=== PATIENT | female | born 1990 | race Two or more races ===

== ENCOUNTER 2024-04-22 18:22 | Emergency (ER) | payer OTHER, SELFPAY ==
--- NOTE | ~2024-04-22 | US_ITS ---
EXAMINATION: ULTRASOUND PELVIC, COMPLETE CLINICAL INFORMATION: Pelvic pain. Vaginal spotting. COMPARISON: None. TECHNIQUE: Transabdominal imaging. Spectral Doppler and color Doppler exam was utilized. LMP: 02/20/2024. Gestational age by LMP 8 weeks 6 days. JULIO November 26, 2024. FINDINGS: UTERUS: Single intrauterine gestation. There is a pole and a yolk sac. heart rate 172 bpm. [place]-rump length 1.9 cm. This correlates to dating by this ultrasound exam of 8 weeks 4 days. JULIO by ultrasound November 28, 2024 ADNEXA: Ovarian vascularity:Doppler demonstrates both arterial and venous vascular flow in the right and left ovary. No evidence of ovarian torsion. Right Ovary: 1.8 x 2.4 x 1.7 cm Left Ovary: There is a mildly cyst measuring 2 cm. Left ovary measures 2.9 x 2.6 x 3.2 cm. Cul-de-sac: No Fluid US/US OB pelvic and transvaginal IMPRESSION: Single intrauterine gestation with estimated gestational age of 8 weeks 4 days. JULIO November 28, 2024. Electronically signed by: Khang Hoover MD 04/22/2024 09:46 PM EST
--- NOTE | 2024-04-22 18:35 | ECG_ITS ---
Test Reason : sob Blood Pressure : / mmHG Vent. Rate : 082 BPM Atrial Rate : 082 BPM P-R Int : 156 ms QRS Dur : 078 ms QT Int : 372 ms P-R-T Axes : 010 043 007 degrees QTc Int : 434 ms Normal sinus rhythm Cannot rule out Anterior infarct , age undetermined Abnormal ECG No previous ECGs available Referred By: Tran Dela Cruz Electronically Signed By:AUBREE COPPOLA MD
--- NOTE | 2024-04-22 18:47 | ED.SOB ---
HPI - SOB/Dyspnea General Chief Complaint: General Medical Stated Complaint: SOB Time Seen by Provider: 04/22/24 18:31 Source: patient, EMS and old records reviewed Mode of arrival: EMS Limitations: no limitations History of Present Illness ED Provider: ALEX RICKS Narrative: 34 yo female with PMH of anxiety/depression with last LMP 02/19 and positive preg test this past week at home. She notes she was just here all day with kids and they both have URI she has felt fine. She then walked about 20 min to [facility] and started to feel chest tightness across the chest, sweaty, nauseated and did not feel well. She vomited. No syncope occurred. EMS notes they found her 95% on RA with wheezes on R lung she was given a duoneb and it helped. She denies having URI, she was a former smoker, she has never used an inhaler before. She did eat today at 2 to 3pm. She feels back to normal after duoneb. She denies vag bleeding but states she has had lower abdominal pain all day which has increased. 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: occurred during exertion Timing: now resolved Severity: moderate Exacerbating factors: exertion and coughing Relieving factors: bronchodilators Related Data Previous Rx's ?Medication ?Instructions ?Recorded escitalopram oxalate 5 mg tablet 5 mg PO DAILY 30 days #30 tabs 02/17/21 fluconazole 150 mg tablet 150 mg PO Q3D 2 doses #2 tabs 09/30/21 (Diflucan) Allergies Allergy/AdvReac Type Severity Reaction Status Date / Time No Known Allergies Allergy Verified 04/22/24 19:01 Review of Systems Review of Systems: Constitutional : No Fever, No Chills ENT/Mouth : No Hoarseness, No sore throat, No Rhinorrhea Eyes: No Redness, No Discharge, No Vision Changes Cardiovascular : pos Chest Pain, positive SOB, positive Dyspnea on Exertion, No Edema Respiratory : no Cough, No Sputum, positive Wheezing, Gastrointestinal : pos Nausea, pos Vomiting, No Diarrhea, pos abdominal Pain Genitourinary : No Dysuria, No Hematuria Musculoskeletal : No joint pain, No Myalgias Skin : No rash Neuro : No Weakness, No Numbness, No Headache Psych : No anxiety, depression All other systems reviewed and are negative [facility] Past Medical History Attestation statement: The following information was validated with the patient. Source: old records reviewed Medical History Primary insomnia URSZULA (generalized anxiety disorder) Mild recurrent major depression Medical cannabis use Class 2 obesity without serious comorbidity with body mass index (BMI) of 37.0 to 37.9 in adult Surgical History H/O wisdom tooth extraction History of section Family History Family History Mother Mental health disorder Father No problems noted. Social History Social History Housing: Apartment Alcohol intake: never Patient Tobacco Use Status: Never used Tobacco e-Cigarette/Vaping Use: Never Used Second Hand Smoke Exposure: No Substance Use Type: Marijuana Advance Directives: No Advance Directives Information Provided: No service: No Current occupational status: unemployed Physical Exam Vital Signs: Vital Signs: Last Vital Signs Temp 98.2 F 04/22/24 18:50 Pulse 86 04/22/24 18:50 Resp 20 04/22/24 18:50 BP 122/73 04/22/24 18:50 Pulse Ox 99 04/22/24 18:50 O2 Del Method Room Air 04/22/24 18:50 BMI result Body Mass Index 40.2 Appearance: Alert. Oriented X3. No acute distress. Eyes: Pupils equal, round and reactive to light. ENT: Pharynx normal. Neck: Normal inspection. Neck supple. CVS: Normal heart rate and rhythm. Pulses normal. Respiratory: No respiratory distress. Breath sounds normal. Abdomen: Soft and non-tender. Skin: Skin warm and dry. Normal skin color. Normal skin turgor. Extremities: No lower extremity edema. No calf ttp Neuro: Oriented X 3. No motor deficit. No sensory deficit. Course Course Course Narrative: discussed ddimer with patient and benefits and risks of CT scan she is currently still thinking about CTA Medical Decision Making Medical Decision Making MDM Narrative: 34 yo female with PMH of anxiety/depression with last LMP 02/19 and positive preg test this past week who was walking and suffered an episode of abdominal pain n/v - labs, Rh type and US for ectopic ordered, she also notes CP and dyspnea has no risk factors for ACS - given will order EKG, troponin, ddimer and reassess. She responded well to duoneb. Possible viral syndrome with reactive airway disease, VTE, ectopic, anxiety Differential Diagnosis Differential Diagnoses: The differential diagnosis associated with the presentation includes reactive airway disease, VTE, ectopic, anxiety Admission/Observation Consideration of admission/observation: Escalation of care including admission/observation considered refuses CT scan she is aware we were looking for VTE she wants to go home at this time feels much better stable for DC Lab Data MDM Lab Attestation statement: I reviewed the patient's lab results. 04/22/24 19:24 04/22/24 19:24 Labs: Lab Results 04/22/24 04/22/24 Range/Units 19:24 20:04 WBC 10.1 (4.8-10.8) X10*3/uL RBC 4.99 (4.20-5.50) X10*6/uL Hgb 13.9 (12.0-16.0) g/dl Hct 41.9 (37.0-47.0) % MCV 84.0 (80.0-98.0) fL MCH 27.9 (27.0-33.0) pg MCHC 33.2 (31.0-35.0) g/dl RDW 15.1 (11.0-16.0) % Plt Count 272 (160-400) X10*3/uL MPV 10.7 (9.4-12.3) fL Immature Gran % (Auto) 0.3 (0.0-0.4) % Neut % (Auto) 79.7 H (45-73) % Lymph % (Auto) 15.6 L (20-40) % Drew % (Auto) 3.9 (2-11) % Eos % (Auto) 0.2 (0-4) % Baso % (Auto) 0.3 (0-2) % Lymph # (Auto) 1.6 (1.2-4.9) X10*3/uL Drew # (Auto) 0.4 (0.1-1.2) X10*3/uL Eos # (Auto) 0.0 (0.0-0.4) X10*3/uL Baso # (Auto) 0.0 (0.0-0.2) X10*3/uL Abs Immat Gran (auto) 0.03 (0.00-0.03) X10*3/uL Absolute Neuts (auto) 8.1 (2.0-8.3) x10*3/uL Absolute Nucleated RBC 0.000 (0.0-0.012) X10*3/uL Nucleated RBC % (auto) 0.0 (0.0-0.2) /100WBC D-Dimer High Sensitivty 351 NG/ML Sodium 134 L (135-145) mmol/L Potassium 3.4 (3.3-5.1) mmol/L Chloride 104 (96-108) mmol/L Carbon Dioxide 22 (22-29) mmol/L Anion Gap 11 L (12-20) BUN 7 L (9-16) mg/dL Creatinine 0.76 (0.5-1.4) mg/dL Estim Creat Clear Calc 104.1 Estimated GFR > 60 Random Glucose 131 H (60-115) mg/dL Calcium 9.3 (8.4-10.2) mg/dL Magnesium 2.0 (1.6-2.6) mg/dL Total Bilirubin 0.2 (0.0-1.0) mg/dL Direct Bilirubin < 0.2 (0.0-0.5) mg/dL AST 18 (5-31) U/L ALT 17 (0-31) U/L Alkaline Phosphatase 62 (39-117) U/L Troponin I High Sens < 2.7 (<3.5-17.0) ng/L B-Natriuretic Peptide < 10 (<100) pg/mL Total Protein 7.6 (6.5-8.0) g/dL Albumin 4.1 (3.5-5.0) g/dL Beta HCG, Quant 59326 mIU/mL Urine Color Yellow Urine Appearance Cloudy Urine pH 6.0 (5.0-9.0) Ur Specific [place] 1.025 (1.005-1.025) Urine Protein 30 (1+) H (Neg-Trace) mg/dL Urine Glucose (UA) Negative (Negative) mg/dL Urine Ketones Negative (Negative) mg/dL Urine Blood Large (3+) H (Negative) Urine Nitrite Negative (Negative) Ur Leukocyte Esterase Negative (Negative) Urine RBC >20 H (0-2) /HPF Urine WBC 0-5 (0-5) /HPF Ur Squamous Epith Cells 6-10 (0-2) /HPF Urine Bacteria 3+ (None Seen) Hyaline Casts 3-5 (0-2) /LPF Influenza Type A (PCR) NEGATIVE (Negative) Influenza Type B (PCR) NEGATIVE (Negative) RSV RNA Qual (PCR) NEGATIVE (Negative) SARS-CoV-2 RNA (RT-PCR) NEGATIVE (Negative) Blood Type A Positive Independent Interpretation I performed an independent interpretation of an: EKG and Ultrasound (IUP) Interpretation: Rate: 82 Rhythm: NSR [place]: normal Normal P waves. Normal BOGDAN. Normal QRS complex. ST T wave : no JAMES, inverted t waves III and V1 qTC: 434 prior studies: no acute ischemia The study has been interpreted contemporaneously by me. . Radiology Impression Discussion of test interpretation with radiology: I have reviewed the radiologist's reading. Independent Historian Clinical information obtained from an independent historian. History obtained from or confirmed by: EMS External Record Review External record reviewed: Outpatient record Prescription Management I considered prescription management with: Other Discharge Plan Discharge Clinical Impression: Near syncope Patient Disposition: Home, Self-Care Instructions: Near Syncope (ED) Additional Instructions: return for any worsening symptoms or concerns you declined a CT scan which we were doing to rule out any blood clot in the lungs please return for any worsening symptoms or concerns blood type is A Positive call and follow up with your OBGYN as soon as possible FINDINGS: UTERUS: Single intrauterine gestation. There is a pole and a yolk sac. heart rate 172 bpm. [place]-rump length 1.9 cm. This correlates to dating by this ultrasound exam of 8 weeks 4 days. JULIO by ultrasound November 28, 2024 ADNEXA: Ovarian vascularity:Doppler demonstrates both arterial and venous vascular flow in the right and left ovary. No evidence of ovarian torsion. Right Ovary: 1.8 x 2.4 x 1.7 cm Left Ovary: There is a mildly cyst measuring 2 cm. Left ovary measures 2.9 x 2.6 x 3.2 cm. Cul-de-sac: No Fluid US/US OB pelvic and transvaginal IMPRESSION: Single intrauterine gestation with estimated gestational age of 8 weeks 4 days. JULIO November 28, 2024. Prescriptions: No Action fluconazole [Diflucan] 150 mg tablet 150 mg PO Q3D Qty: 2 0RF escitalopram oxalate 5 mg tablet 5 mg PO DAILY 30 Days Qty: 30 1RF Print Language: Martiniquais
[2024-04-22 18:50] VITALS: BP 104/68; BP 122/73; PULSE 74; PULSE 86; RESP 20; TEMP 36.8; O2SAT 95; O2SAT 99; BMI 40.2
[2024-04-22 19:30] LABS: MANUAL DIFF FLAG NO
[2024-04-22 19:42] LABS: Basophils Percent Auto 0.3 % (0-2); D Dimer High Sensitivity 351 NG/ML; Eosinophils Percent Auto 0.2 % (0-4); Hematocrit 41.9 % (37.0-47.0); Hemoglobin 13.9 g/dl (12.0-16.0); Imm Gran Abs Auto 0.03 X10*3/uL (0.00-0.03); Imm Gran Pct Auto 0.3 % (0.0-0.4); Lymphocytes Absolute Auto 1.6 X10*3/uL (1.2-4.9); Lymphocytes Percent Auto 15.6 % (20-40); Mean Corpuscular HGB Conc 33.2 g/dl (31.0-35.0); Mean Corpuscular Hemoglobin 27.9 pg (27.0-33.0); Mean Platelet Volume 10.7 fL (9.4-12.3); Monocytes Absolute Auto 0.4 X10*3/uL (0.1-1.2); Monocytes Percent Auto 3.9 % (2-11); Neutrophils Absolute Auto 8.1 x10*3/uL (2.0-8.3); Neutrophils Percent Auto 79.7 % (45-73); Platelet Count 272 X10*3/uL (160-400); Red Blood Count 4.99 X10*6/uL (4.20-5.50); Red Cell Distribution Width 15.1 % (11.0-16.0); White Blood Count 10.1 X10*3/uL (4.8-10.8)
[2024-04-22 19:52] LABS: B Type Natriuretic Peptide < 10 pg/mL (<100)
[2024-04-22 19:55] LABS: Alanine Aminotransferase 17 U/L (0-31); Albumin Level 4.1 g/dL (3.5-5.0); Alkaline Phosphatase 62 U/L (39-117); Anion Gap 11 (12-20); Aspartate Amino Transferase 18 U/L (5-31); Bilirubin Direct < 0.2 mg/dL (0.0-0.5); Bilirubin Total 0.2 mg/dL (0.0-1.0); Blood Urea Nitrogen 7 mg/dL (9-16); Calcium 9.3 mg/dL (8.4-10.2); Carbon Dioxide 22 mmol/L (22-29); Chloride 104 mmol/L (96-108); Creatinine Clr Calc Pharmacy 104.1; Estimated Glomerular Filt Rate > 60; Glucose Random 131 mg/dL (60-115); Potassium 3.4 mmol/L (3.3-5.1); Sodium 134 mmol/L (135-145); Total Protein 7.6 g/dL (6.5-8.0)
[2024-04-22 19:56] LABS: Troponin-I High Sensitivity < 2.7 ng/L (<3.5-17.0)
[2024-04-22 20:08] LABS: Influenza A PCR NEGATIVE (Negative); Influenza B PCR NEGATIVE (Negative); Resp Syncy Virus RNA Qual PCR NEGATIVE (Negative); SARS COV2 PCR INHOUSE NEGATIVE (Negative)
[2024-04-22 20:22] LABS: HCG Quantitative 72204 mIU/mL
[2024-04-22 20:31] LABS: Appearance Urine Cloudy; Color Urine Yellow; Glucose Urine UA Negative (Negative); Leukocyte Esterase Urine Negative (Negative); Nitrite Urine Negative (Negative); Specific Gravity - Urine 1.025 (1.005-1.025); UMIC TRIGGER UACC YES; Urine Blood Large (3+) (Negative); Urine Ketones Negative (Negative); Urine Protein 30 (1+) mg/dL (Neg-Trace)
[2024-04-22 20:44] LABS: Bacteria Urine 3+ (None Seen); RBC Urine >20 /HPF (0-2); WBC Urine 0-5 /HPF (0-5)
[2024-04-22 22:39] VITALS: BP 118/72; PULSE 82; RESP 18; TEMP 36.8; O2SAT 99
[2024-04-22 22:40] VITALS: BP 118/72; PULSE 82; RESP 18; TEMP 36.8; O2SAT 99
== END 2024-04-22 22:41 | disposition home or self-care (01) ==
PROVIDERS: Emergency Provider Emergency Medicine
DX: R55 Syncope and collapse (principal); R06.02 Shortness of breath; R07.89 Other chest pain; R11.2 Nausea with vomiting, unspecified; R05.9 Cough, unspecified; Z03.818 Encounter for observation for suspected exposure to other biological agents ruled out; Z79.899 Other long term (current) drug therapy
CPT/HCPCS: 0241U; 36415; 76801; 76817; 80048; 80076; 81001; 83735; 83880; 84484; 84702; 85025; 85379; 86900; 86901; 93005; 99284

== ENCOUNTER → 2024-04-22 18:35 | Outpatient (BNV) | payer OTHER, SELFPAY | PROVIDERS: Emergency Provider Emergency Medicine; Visit Provider Internal Medicine Cardiovascular Disease | DX: R06.02 Shortness of breath (principal) | CPT/HCPCS: 93010 ==

== ENCOUNTER 2024-04-26 14:33 | Emergency (ER) | payer OTHER, SELFPAY ==
[2024-04-26 15:08] VITALS: BP 121/80; PULSE 85; RESP 19; TEMP 36.6; O2SAT 98; BMI 40.4
--- NOTE | 2024-04-26 15:11 | ED_ITS ---
HPI - General Adult General Chief complaint: Upper Respiratory Symptoms Stated complaint: sob Time Seen by Provider: 04/26/24 20:15 Source: patient Limitations: no limitations History of Present Illness ED Provider: Amy cleveland PA-C HPI narrative: 34-year-old female with a history of morbid obesity, anxiety, depression, currently 9 weeks presents with cough cold symptoms. Patient was seen in the emergency department 4 days ago, she had an elevated dimer, she opted not to have a CT angiogram of the chest. Patient's symptoms improved after an updraft. She was not sent home with a additional albuterol or a steroid. Patient's children are both sick with viral illness, confirmed by their superintendent communications. She has a child who has asthma and has been using albuterol secondary to viral syndrome. The patient's pleuritic chest discomfort resolved after albuterol. Patient denies unilateral calf pain or swelling, no hemoptysis. Related Data Previous Rx's ?Medication ?Instructions ?Recorded escitalopram oxalate 5 mg tablet 5 mg PO DAILY 30 days #30 tabs 02/17/21 fluconazole 150 mg tablet 150 mg PO Q3D 2 doses #2 tabs 09/30/21 (Diflucan) albuterol sulfate 90 mcg/actuation 2 puff inhalation Q4-6H PRN 04/26/24 aerosol inhaler shortness of breath or wheezing 7 days #6.7 grams prednisone 20 mg tablet 40 mg (2 x 20 mg) PO DAILY #10 tabs 04/26/24 Allergies Allergy/AdvReac Type Severity Reaction Status Date / Time No Known Allergies Allergy Verified 04/26/24 15:11 Review of Systems 2 Review of Systems: Yes all other systems are reviewed and are negative Constitutional: Constitutional: Denies fatigue and Denies fever(s) Cardiovascular: Cardiovascular: Denies chest pain and Denies dyspnea Respiratory: Respiratory: Reports cough, Denies dyspnea and Denies wheezing Gastrointestinal: Gastrointestinal: Denies abdominal pain, Denies diarrhea, Denies nausea and Denies vomiting Endocrine: Endocrine: Denies fatigue Allergic/Immunologic: Allergic/Immunologic: Denies wheezing PMFSH Past Medical History Attestation statement: The following information was validated with the patient. Medical History Primary insomnia URSZULA (generalized anxiety disorder) Mild recurrent major depression Medical cannabis use Class 2 obesity without serious comorbidity with body mass index (BMI) of 37.0 to 37.9 in adult Surgical History H/O wisdom tooth extraction History of section Family History Family History Mother Mental health disorder Father No problems noted. Social History Social History Housing: Apartment Alcohol intake: never Patient Tobacco Use Status: Never used Tobacco e-Cigarette/Vaping Use: Never Used Second Hand Smoke Exposure: No Substance Use Type: Marijuana Advance Directives: No Advance Directives Information Provided: No Do you have a plan to hurt others: No Plan service: No Current occupational status: unemployed Physical Exam ED Vital Signs: Vital Signs - 24 hr 04/26/24 15:08 Temperature 98 F Pulse Rate 85 Respiratory Rate 19 Blood Pressure 121/80 Pulse Oximetry 98 Oxygen Delivery Method Room Air BMI result Body Mass Index 40.4 Const Other: Alert, well-appearing Orientation/consciousness: patient oriented x3 Resp Other: Nonlabored respirations, lungs clear to auscultation Cardio Other: Normal peripheral perfusion Skin Other: Warm dry no rash Neuro General: patient oriented x3, no focal motor deficits and CN's II-XI intact bilaterally Extrem Other: No unilateral calf pain or swelling noted Psych Other: Calm cooperative Course Course Course Narrative: RME, this is a rapid medical exam performed by Danish Stover please refer to primary provider for complete H&P- 34 year old female presents for evaluation of shortness of breath and pain with coughing. She is currently , . She was seen here 4 days ago on 04/22/2024. She had an elevated D-dimer to 351. After discussion with her provider at that time opted not to have a CT angiography but is presenting for continued symptoms in his interested in the scan at this time. We will repeat labs, viral swabs. We will defer imaging to primary ER provider Medical Decision Making Medical Decision Making MDM Narrative: 34-year-old female with a history of morbid obesity, anxiety, depression, currently 9 weeks presents with cough cold symptoms. Patient was seen in the emergency department 4 days ago, she had an elevated dimer, she opted not to have a CT angiogram of the chest. Patient's symptoms improved after an updraft. She was not sent home with a additional albuterol or a steroid. Patient's children are both sick with viral illness, confirmed by their superintendent communications. She has a child who has asthma and has been using albuterol secondary to viral syndrome. The patient's pleuritic chest discomfort resolved after albuterol. Patient denies unilateral calf pain or swelling, no hemoptysis. Problem: Obesity and History: Per patient I have considered the following differential diagnoses: Pneumonia, bronchitis, viral syndrome, asthma exacerbation, PE Plan: Patient returns due to unresolved symptoms, we have been contemplating obtaining a CT angiogram. Per YEARS criteria, the patient rules out, an angiogram is not warranted; the patient's dimer was 351, she does not meet any of the 3 standard YEARS criteria. The patient's symptoms are most consistent with viral syndrome, that is causing her airway to become reactive. We will send with albuterol and steroid. Thought about potential pneumonia and need for chest x-ray, however her cough is not productive, her lungs are clear on exam, she is afebrile and does not have a leukocytosis. I am also having her follow up with her booth manager to discuss the need for a potential CT angiogram. We will send the patient with return precautions. I have independently reviewed the following tests: Labs: No leukocytosis, not anemic, no electrolyte abnormality noted Lab Data 04/26/24 16:41 04/26/24 16:41 Labs: Lab Results 04/26/24 Range/Units 16:41 WBC 7.4 (4.8-10.8) X10*3/uL RBC 4.35 (4.20-5.50) X10*6/uL Hgb 12.5 (12.0-16.0) g/dl Hct 35.3 L (37.0-47.0) % MCV 81.1 (80.0-98.0) fL MCH 28.7 (27.0-33.0) pg MCHC 35.4 H (31.0-35.0) g/dl RDW 15.1 (11.0-16.0) % Plt Count 234 (160-400) X10*3/uL MPV 10.3 (9.4-12.3) fL Immature Gran % (Auto) 0.4 (0.0-0.4) % Neut % (Auto) 77.0 H (45-73) % Lymph % (Auto) 14.4 L (20-40) % [place] % (Auto) 6.6 (2-11) % Eos % (Auto) 1.2 (0-4) % Baso % (Auto) 0.4 (0-2) % Lymph # (Auto) 1.1 L (1.2-4.9) X10*3/uL [place] # (Auto) 0.5 (0.1-1.2) X10*3/uL Eos # (Auto) 0.1 (0.0-0.4) X10*3/uL Baso # (Auto) 0.0 (0.0-0.2) X10*3/uL Abs Immat Gran (auto) 0.03 (0.00-0.03) X10*3/uL Absolute Neuts (auto) 5.7 (2.0-8.3) x10*3/uL Absolute Nucleated RBC 0.000 (0.0-0.012) X10*3/uL Nucleated RBC % (auto) 0.0 (0.0-0.2) /100WBC PT 12.2 (10.9-12.4) SEC INR 1.0 (0.9-1.1) Sodium 137 (135-145) mmol/L Potassium 3.5 (3.3-5.1) mmol/L Chloride 107 (96-108) mmol/L Carbon Dioxide 22 (22-29) mmol/L Anion Gap 12 (12-20) BUN 6 L (9-16) mg/dL Creatinine 0.61 (0.5-1.4) mg/dL Estim Creat Clear Calc 130.0 Estimated GFR > 60 Random Glucose 95 (60-115) mg/dL Calcium 9.0 (8.4-10.2) mg/dL Total Bilirubin 0.2 (0.0-1.0) mg/dL AST 19 (5-31) U/L ALT 29 (0-31) U/L Alkaline Phosphatase 67 (39-117) U/L Total Protein 7.1 (6.5-8.0) g/dL Albumin 3.8 (3.5-5.0) g/dL Lipase 11 (8-78) U/L Influenza Type A (PCR) NEGATIVE (Negative) Influenza Type B (PCR) NEGATIVE (Negative) RSV RNA Qual (PCR) NEGATIVE (Negative) SARS-CoV-2 RNA (RT-PCR) NEGATIVE (Negative) Discharge Plan Discharge Clinical Impression: Acute viral syndrome, Bronchospasm Patient Disposition: Home, Self-Care Instructions: Viral Syndrome (ED), Bronchospasm (ED) Additional Instructions: You are being treated for viral syndrome with bronchospasm. See home care instructions. Use the albuterol as needed for cough and wheezing, take the steroid as directed, take the steroid in the morning. You need to call your booth manager for further guidance in regard to having a CT angiogram to rule out a pulmonary embolism. Verbalize the following to your booth manager over the phone: d-dimer 351 per YEARS criteria, the patient does not rule in for an angiogram; no evidence of DVT on exam, no hemoptysis, her current viral syndrome and bronchospasm are the more likely diagnoses for her shortness of breath and pleuritic chest discomfort. Furthermore, the pleuritic chest discomfort resolved after an updraft. Prescriptions: New albuterol sulfate 90 mcg/actuation HFA aerosol inhaler 2 puff inhalation Q4-6H MDD 12 puffs PRN (Reason: shortness of breath or wheezing) 7 Days Qty: 6.7 0RF prednisone 20 mg tablet 40 mg PO DAILY Qty: 10 0RF No Action fluconazole [Diflucan] 150 mg tablet 150 mg PO Q3D Qty: 2 0RF escitalopram oxalate 5 mg tablet 5 mg PO DAILY 30 Days Qty: 30 1RF Print Language: British
[2024-04-26 16:45] LABS: MANUAL DIFF FLAG NO
[2024-04-26 16:55] LABS: Prothrombin Time 12.2 SEC (10.9-12.4)
[2024-04-26 16:56] LABS: Basophils Percent Auto 0.4 % (0-2); Eosinophils Absolute Auto 0.1 X10*3/uL (0.0-0.4); Eosinophils Percent Auto 1.2 % (0-4); Hematocrit 35.3 % (37.0-47.0); Hemoglobin 12.5 g/dl (12.0-16.0); Imm Gran Abs Auto 0.03 X10*3/uL (0.00-0.03); Imm Gran Pct Auto 0.4 % (0.0-0.4); Lymphocytes Absolute Auto 1.1 X10*3/uL (1.2-4.9); Lymphocytes Percent Auto 14.4 % (20-40); Mean Corpuscular HGB Conc 35.4 g/dl (31.0-35.0); Mean Corpuscular Hemoglobin 28.7 pg (27.0-33.0); Mean Corpuscular Volume 81.1 fL (80.0-98.0); Mean Platelet Volume 10.3 fL (9.4-12.3); Monocytes Absolute Auto 0.5 X10*3/uL (0.1-1.2); Monocytes Percent Auto 6.6 % (2-11); Neutrophils Absolute Auto 5.7 x10*3/uL (2.0-8.3); Platelet Count 234 X10*3/uL (160-400); Red Blood Count 4.35 X10*6/uL (4.20-5.50); Red Cell Distribution Width 15.1 % (11.0-16.0); White Blood Count 7.4 X10*3/uL (4.8-10.8)
[2024-04-26 17:07] LABS: Alanine Aminotransferase 29 U/L (0-31); Albumin Level 3.8 g/dL (3.5-5.0); Alkaline Phosphatase 67 U/L (39-117); Anion Gap 12 (12-20); Aspartate Amino Transferase 19 U/L (5-31); Bilirubin Total 0.2 mg/dL (0.0-1.0); Blood Urea Nitrogen 6 mg/dL (9-16); Carbon Dioxide 22 mmol/L (22-29); Chloride 107 mmol/L (96-108); Estimated Glomerular Filt Rate > 60; Glucose Random 95 mg/dL (60-115); Lipase 11 U/L (8-78); Potassium 3.5 mmol/L (3.3-5.1); Sodium 137 mmol/L (135-145); Total Protein 7.1 g/dL (6.5-8.0)
[2024-04-26 17:29] LABS: Influenza A PCR NEGATIVE (Negative); Influenza B PCR NEGATIVE (Negative); Resp Syncy Virus RNA Qual PCR NEGATIVE (Negative); SARS COV2 PCR INHOUSE NEGATIVE (Negative)
[2024-04-26 21:58] VITALS: BP 120/79; PULSE 80; RESP 20; TEMP 36.2; O2SAT 99
[2024-04-26 22:06] VITALS: BP 120/79; PULSE 80; RESP 20; TEMP 36.2; O2SAT 99
== END 2024-04-26 22:07 | disposition home or self-care (01) ==
PROVIDERS: Physician Assistant; Emergency Provider Emergency Medicine
DX: O26.899 Other specified pregnancy related conditions, unspecified trimester (principal); B34.9 Viral infection, unspecified; J98.01 Acute bronchospasm; R05.9 Cough, unspecified; Z03.818 Encounter for observation for suspected exposure to other biological agents ruled out; Z79.899 Other long term (current) drug therapy
CPT/HCPCS: 0241U; 36415; 80053; 83690; 85025; 85610; 99283